=== PATIENT | male | born 1980 | race Caucasian/White ===

== ENCOUNTER 2023-04-23 15:57 | Outpatient (OUT) | payer OTHER, SELFPAY ==
[2023-04-23 16:43] LABS: Basophils Absolute Auto 0.1 10^3/uL (0.0-0.1); Basophils Percent Auto 0.9 % (0.2-2.0); Eosinophils Absolute Auto 0.3 10^3/uL (0.0-0.7); Eosinophils Percent Auto 3.4 % (0.9-7.0); Hematocrit 42.1 % (42.0-54.0); Hemoglobin 14.3 g/dL (14.0-18.0); Immature Granulocytes Abs Auto 0.11 10^3/uL (0.00-0.03); Immature Granulocytes Pct Auto 1.2 % (0.0-0.5); Lymphocytes Absolute Auto 2.7 10^3/uL (1.2-3.8); Lymphocytes Percent Auto 29.9 % (20.5-60.0); Mean Corpuscular Hemoglobin 30.5 pg (25.9-34.0); Mean Corpuscular Volume 89.8 fL (80.0-94.0); Mean Platelet Volume 10.1 fL (9.5-13.5); Monocytes Absolute Auto 0.5 10^3/uL (0.3-0.8); Monocytes Percent Auto 5.9 % (1.7-12.0); Neutrophils Absolute Auto 5.4 10^3/uL (1.4-6.5); Neutrophils Percent Auto 58.7 % (43.0-75.0); Platelet Count 273 10^3/uL (150-450); Red Blood Count 4.69 10^6/uL (4.70-6.10); Red Cell Distribution Width 12.6 % (11.0-15.0); White Blood Count 9.2 10^3/uL (4.0-11.0)
[2023-04-23 16:54] LABS: Alanine Aminotransferase 137 U/L (16-63); Albumin Level 4.1 g/dL (3.4-5.0); Alkaline Phosphatase 73 U/L (46-116); Anion Gap 16.4; Aspartate Amino Transferase 41 U/L (15-37); BUN Creatinine Ratio 16.5; Bilirubin Total 0.2 mg/dL (0.2-1.0); Calcium 9.1 mg/dL (8.5-10.1); Chloride 102 mmol/L (98-107); Estimated GFR (African America >60 (>=60); Estimated GFR (Non-African Ame >60 (>=60); Glucose 96 mg/dL (74-106); Potassium 4.4 mmol/L (3.5-5.1); Sodium 141 mmol/L (136-145); Total Protein 8.1 g/dL (6.4-8.2)
== END 2023-04-23 15:58 | disposition home or self-care (01) ==
LOC: LAB 16:04
PROVIDERS: PCP Family Medicine; Visit Provider Family Medicine
DX: R74.8 Abnormal levels of other serum enzymes (principal)
CPT/HCPCS: 36415; 80053; 85025

== ENCOUNTER 2023-05-02 09:51 | Outpatient (OUT) | payer OTHER, SELFPAY ==
[2023-05-02 11:20] LABS: Alanine Aminotransferase 135 U/L (16-63); Alkaline Phosphatase 63 U/L (46-116); Aspartate Amino Transferase 46 U/L (15-37); Bilirubin Direct 0.1 mg/dL (0.0-0.2); Bilirubin Total 0.5 mg/dL (0.2-1.0); Globulin 4.1 g/dL; Total Protein 8.1 g/dL (6.4-8.2)
[2023-05-03 05:21] LABS: HBsAg Screen Negative (Negative); HCV Ab Non Reactive (Non Reactive); Hep A Ab, IgM Negative (Negative); Hep B Core Ab, IgM Negative (Negative)
== END 2023-05-02 09:52 | disposition home or self-care (01) ==
LOC: LAB 09:52
PROVIDERS: PCP Family Medicine; Visit Provider Family Medicine
DX: R79.89 Other specified abnormal findings of blood chemistry (principal)
CPT/HCPCS: 36415; 80074; 80076

== ENCOUNTER 2025-06-27 09:00 | Outpatient (OUT) | payer OTHER, SELFPAY ==
--- OUTSIDE RECORDS SUMMARY | 2025-06-17 12:15 | XMS_ITS ---
Author Organization [facility] in [place] Address [address] [place] [address] Care Team Providers Care Color Straining Bag Washer Name Role Phone Lorne Morillo Primary Care Provider [phone] Allergies Allergen (clinical drug ingredient) Drug/Non Drug Allergy documented on EMR Reaction Allergy Type Onset Date Status RocephinUnknownDrug AllergyActiveerythromycinErythromycinUnknownDrug Allergy Active REASON FOR VISIT yearly wellness exam, bumps on left wrist, states they have been there around 9 months Medications Medication SIG (Take, Route, Frequency, Duration) Notes Start Date End Date Status Hyoscyamine Sulfate 0.125 MG 1-2 tabs SL SL ever y 4 hrs PRN abd pain 4ActiveMetoprolol Tartrate 25 MGTAKE 1 TABLET BY MOUTH TWICE A DAY; Duration: 90ActivePantoprazole Sodium 40 MGTAKE 1 TABLET BY MOUTH EVERY DAY; Duration: 90Active Social History Tobacco Use: Social History Observation Description Date Details (start date - stop date) Never Smoker NA - NA Tobacco Use/Smoking Question Answer Notes Patient is a nonsmoker AUDIT-C (Standard) Question Answer Notes Did you have a drink containing alcohol in the p ast year? No Eusuaq6VduotyromxpnzaAdfvvggq Problems Problem Type SNOMED Code ICD Code Onset Dates Problem Status W/U Status Risk Notes Problem Well adult (010950252) Well adult (Z00.00 ) Activeconfirmed Vital Signs Weight 273 lbs 06/17/2025 Height 70 in 06/17/2025 Blood pressure systolic 132 mm Hg 06/17/20 25 Blood pressure diastolic 72 mm Hg 025 BMI 39.17 kg/m2 06/17/2025 Encounters Encounter Location Date Provider Diagnosis [facility] [address] [facility] [place] [address] 06/17/2025 Lorne Morillo Well adult Z00.0 0 Assessments Encounter Date Diagnosis (ICD Code) Assessment Notes Treatment Notes Treatment Clinical Notes Section Notes 06/17/2025 Well adult (ICD-10 - Z00.00) Plan Of Treatment Medication Medication Name Sig Start Date Stop Date Notes Losartan Potassium 100 MG TAKE 1 TABLET BY MOUTH EVERY DAY Pending Test Test Name Order Date HEMOGLOBIN A1C (GLYCO) 06/17/2025 INSULIN, TOTAL 06/17/2025 LIPID PANEL (CHOL/TRIG/HDL/LDL) 06/17/20 25 URIC ACID 06/17/2025 Urinalysis Microscopic 06/17/2025 CULTURE URINE 06/17/2025 THYROID PANEL (T4/TSH/FREE T3) PSA, SCREENING 06/17/2025 CMP (COMP MET MALIK) w/eGFR CKD-EPI 2024 CBC WITH DIFF 06/17/2025 Progress Notes * Darien MARTIN RDOB:[birth year] (44 yo M)Acc No.[id number]:06/17/2025 Progress Note Patient: Purvi PIERCEEKATERINA Darien Sol :?Clifton Morillo ([facility]), MDDOB:1980???Age: 44 Y???Sex:MaleDate:06/17/2025Phone:[phone]:[address] [place], [place]Nlnpy In:04:09 PM ESTCheck Out:04:34 PM EST Subjective: * Chief Complaints: * Y early wellness examBumps on left wrist, states they have been there around 9 months * HPI: ???General:?Left mwedail wrist iwht warts multiple HTN _ discussed - watchin salt and cafeine and stoping losartan. ???Depression Screening:?PHQ-2 (2015 Edition)?Little interest or pleasure in doing things? Not at all ?Feeling down, depressed, or hopeless??Not at all ?Total Score?0 * ROS: ???EENT:?hearing changes?denies.?visual changes?denies. non-healing mouth sores?denies.?swollen glands or neck lumps?denies.?hoarseness?denies.?sore throat?denies.?difficulty swallowing?denies.?nose bleeds?denies.?nasal congestion?denies.?ear ache?denies.?ear discharge denies.?ringing in ears?denies.?light sensitivity?denies.?eye pain?denies.?blurring?denies.?eye irritation?denies.?double vision?denies. vision loss?denies.?General/Constitutional:?Sweats:?Denies.?Fatigue?denies.?Sleep proble ms?denies.?Anorexia?denies.?Malaise?denies.?Weight loss?denies. Fatigue or Weakness?denies.?Fever or Chills?denies.?Cardiovascular:?Shortness of Breath w/lying flat?denies.?Lightheadedne ss/dizziness?denies.?Chest tightness/ heavy pressure?denies.?Swelling of legs, a nkles, or feet?denies.?Waking up with shortness of breath?denies.?Chest pain&#16 0;denies.?Palpitations?denies.?Weight gain?denies.?Respiratory:?Chronic or frequent cough?denies.?Coughing up blood&#1 60;denies.?Difficulty breathing?denies.?Productive cough?denies.?Snoring&#1 60;denies.?Shortness of breath that awakens from sleep (PND)?denies.?Chest pain? denies.?Sputum production?denies.?Wheezing?denies.?Musculoskeletal:?Joint pain?denies.?Joint Fluid?denies.?Backpain?denies.?Knee pain?denies.?Neck pain?denies.?Joint Stiffness?denies.?Muscle cramps?denies.?Weakness of muscles?denies.?Arthritis?denies.?Muscle aches?denies.?Pain in shoulder(s)?denies.?Swollen joints?denies.? * Active Problem List R55 Syncope and collapse Modified On:04/17/2023U Status:dutusjecxE49Vvnmulbdq hypertension Modified On:12/11/2022U Status:ltufruxiiE00.9Hiatal hernia Modified On:12/11/2022U Status:uocsrepboE22.90Diverticulosis Modified On:12/11/2022U Status:upgeaxhemR03.1Pulmonary nodule Modified On:12/11/2022U Status:okhykuwoqW02.0Fatty liver Modified On:12/11/2022U Status:jwwgqdwydP90.92Diverticulitis Modified On:12/11/2022U Status:evqbfkqlnC00.3Over weight Modified On:12/11/2022U Status:otvxtnujdO31.1COVID-19 Modified On:12/11/2022U Status:oixgiqkylZ47.2Paresthesia of arm Modified On:12/13/2022U Status:lqrvvauauE08Rriswjq Modified On:12/13/2022U Status:rybehaqjeR23.8Abnormal levels of other serum enzymes Modified On:04/18/2023U Status:wajwytzvnN75.11Right upper quadrant abdominal pain Modified On:05/19/2024/U Status:arhyhdgvoH63.00Well adult Modified On:06/17/2025U Status:confirmed * Medical History: * Surgical History: c yst removal back 11/25/2022 * Hospitalization/Major Diagno stic Procedure: s yncope 08/29/2022 * Family History: F ather: unknown. M other: alive 62 yrs. S ister(s): alive. 3 sister(s) - healthy. 1 son(s) , 1 daughter(s) - healthy. . * Social History: ???Tobacco Use:?Tobacco Use/Smoking?Patient is a?nonsmoker ???Drug/Alcohol:?AUDIT-C (Standard)?Did you have a drink containing alcohol in the past year??No ?Points?0 ?Interpretation?Negative * Medications: T akingHyoscyamine Sulfate 0.125 MG Tablet 1-2 tabs SL SL every 4 hrs PRN abd pain Losartan Potassium 100 MG Tablet TAKE 1 TABLET BY MOUTH EVERY DAY Metoprolol Tartrate 25 MG Tablet TAKE 1 TABLET BY MOUTH TWICE A DAY Pantoprazole Sodium 40 MG Tablet Delayed Release TAKE 1 TABLET BY MOUTH EVERY DAY Medication List reviewed and reconciled with the patientTaking Hyoscyamine Sulfate 0.125 MG Tablet 1-2 tabs SL SL every 4 hrs PRN abd pain Taking Losartan Potassium 100 MG Tablet TAKE 1 TABLET BY MOUTH EVERY DAY Taking Metoprolol Tartrate 25 MG Tablet TAKE 1 TABLET BY MOUTH TWICE A DAY Taking Pantoprazole Sodium 40 MG Tablet Delayed Release TAKE 1 TABLET BY MOUTH EVERY DAY Medication List reviewed and reconciled with the patient * Allergies: E rythromycin - Criticality HighRocephin - Criticality Highno[Allergies Verified] Objective: * Vitals: W t:273lbs, Ht: 70 in, BP:132/72mm Hg, BMI:39.17Index, Ht-cm: 177.8 cm, Wt-k.83 kg. * Examination: ???Physical Exam: ?GENERAL:?well developed, well nourished, in no acute distress.?HEAD:?normocephalic/atraumatic.?EYES:?pupils equal, round and reactive to light, conjunctivae and sclerae normal.?EARS:?no deformity or lesion of external ear, canals and TM appear normal bilaterally, TM's intact, not inflamed with normal light reflex, hearing grossly normal to conversational speech.?NOSE:?no deformity, discharge, inflammation, or lesions. ?MOUTH:?mucous membranes moist, normal oropharynx and posterior pharynx without lesions or exudates, tongue normal, dentition normal.?NECK:?neck supple, no masses or palpable cervical nodes, trachea midline, thyroid without nodules, masses, tenderness, or enlargement.?CHEST:?no chest wall deformity, no chest wall tenderness. ?LUNGS:?normal respiratory effort and clear to auscultation, no wheezes, rales, or rhonchi, good air exchange.?CARDIO:?regular rate and rhythm, normal S1 and S2, nor murmur, rub, or gallop.?PULSES:?normal capillary refill.?ABDOMEN:?soft, non-distended, non-tender, no masses.?MUSCULOSKELETAL:?no deformity or scoliosis noted, normal range of motion, joints normal, no erythema, edema, effusion, or ecchymosis.?EXTREMITY:?no clubbing, cyanosis, edema, or deformity withnormal ROM in both upper and lower bilateral extremities.?NEUROLOGIC:?grossly normal.?SKIN:?no rashes, ulcerations, or suspicious lesions.?LYMPH NODES:?no cervical adenopathy, nodes normal.?MENTAL STATUS:?alert and oriented x3, normal mood and affect.? Assessment: * Assessment: 1.?Well adult - Z00.00 (Primary)??? Plan: * Treatment: Stop Losartan Potassium Tablet, 100 MG, TAKE 1 TABLET BY MOUTH EVERY DAY.?LAB: HEMOGLOBIN A1C (GLYCO) ?LAB: INSULIN, TOTAL ?LAB: LIPID PANEL (CHOL/TRIG/HDL/LDL) ?LAB: URIC ACID ?LAB: Urinalysis Microscopic ?LAB: CULTURE URINE ?LAB: THYROID PANEL (T4/TSH/FREE T3) ?LAB: PSA, SCREENING ?LAB: CMP (COMP MET MALIK) w/eGFR CKD-EPI ?LAB: CBC WITH DIFF * Procedure Codes: * Preventive Medicine: ??Screenings/Counseling:?BMI ACTION PLAN?Above Normal BMI Follow-up?Dietary management education, guidance, and counseling * * Sign off status: CompletedVisit Status:?CHK (Check Out) true * Provider: Ra Morillo ([facility])MD Date: 1 Generated for Printing/FaDiamond Kineticsg/eTransmitting on:?06/27/2025 09:04 AM EDT History and Physical Notes * HPI (History of Present Illness) CategorySub-CategoryDetailNotesCategory NotesGeneral Left mwedail wrist iwht warts multiple HTN _ discussed - watchin salt and cafeine and stoping losartan Depression ScreeningPHQ-2 (2015 Edition)Little interest or pleasure in doing things?: Not at allFeeling down, depressed, or hopeless?: Not at allTotal Score: 0 Examination CategorySub-CategoryDetailNotesCategory NotesPhysical ExamGENERAL:well developed, well nourished, in no acute distressHEAD:normocephalic/atraumatic EYES:pupils equal, round and reactive to light, conjunctivae and sclerae normal EARS:no deformity or lesion of external ear, canals and TM appear normal bilaterally, TM's intact, not inflamed with normal light reflex, hearing grossly normal to conversational speechNOSE:no deformity, discharge, inflammation, or lesionsMOUTH:mucous membranes moist, normal oropharynx and posterior pharynx without lesions or exudates, tonguenormal, dentition normalNECK:neck supple, no masses or palpable cervical nodes, trachea midline, thyroid without nodules, masses, tenderness, or enlargementCHEST:no chest wall deformity, no chest wall tendernessLUNGS:normal respiratory effort and clear to auscultation, no wheezes, rales, or rhonchi, good air exchangeCARDIO:regular rate and rhythm, normal S1 and S2, nor murmur, rub, or gallopPULSES:normal capillary refillABDOMEN:soft, non-distended, non-tender, no massesRECTAL:MUSCULOSKELETAL:no deformity or scoliosis noted, normal range of motion, joints normal, no erythema, edema, effusion, or ecchymosisEXTREMITY:no clubbing, cyanosis, edema, or deformity with normal ROM in both upper and lower bilateral extremitiesNEUROLOGIC:grossly normalSKIN:no rashes, ulcerations, or suspicious lesionsLYMPH NODES:no cervical adenopathy, nodes normalMENTAL STATUS:alert and oriented x3, normal mood and affect
--- OUTSIDE RECORDS SUMMARY | 2025-06-27 09:05 | XMS_ITS | Patient Health Record ---
Author Organization [facility] in [place] Address [address] [place] [address] Care Team Providers Care Hot Mill Tin Roller Name Role Phone Lorne Morillo Primary Care Provider Allergies Allergen (clinical drug ingredient) Drug/Non Drug Allergy documented on EMR Reaction Allergy Type Onset Date Status RocephinUnknownDrug AllergyActiveerythromycinErythromycinUnknownDrug Allergy Active Reason For Referral No Information Medications Medication SIG (Take, Route, Frequency, Duration) [...] Question Answer Notes Patient is a nonsmoker Alcohol Screen (Audit-C) Question Answer Notes Did you have a drink containing alcohol in the p ast year? Yes How often did you have 6 or more drinks on one occasion in the past year?Monthly or less (1 point)How many drinks did you have on a typical day when you were drinking in the past year?3 or 4 drinks (1 point)How often did you have a drink containing alcohol in the past year?Less than monthly (1 point)Points3 InterpretationNegativeAUDIT-C (Standard) Question Answer Notes Did you have a drink containing alcohol in the p ast year? No Tkonui9VvjatzeklxjgkvNsegmpzl Problems Problem Type SNOMED Code ICD Code Onset Dates Problem Status W/U Status Risk Notes Problem Syncope and collapse (712316403) Syncope and collapse (R55) ActiveconfirmedProblemLaboratory test result abnormal (769380440)Abnormal levels of other serum enzymes (R74.8)ActiveconfirmedProblemEssential hypertension (98427388)Essential hypertension (I10)ActiveconfirmedProblemVertigo (456464681) Vertigo (R42)ActiveconfirmedProblemHiatal hernia (69141602)Hiatal hernia (K44.9) ActiveconfirmedProblemDiverticular disease of colon (528260183)Diverticulosis (K57.90)ActiveconfirmedProblemPulmonary nodule (585466942)Pulmonary nodule (R91.1)ActiveconfirmedProblemFatty liver (067876575)Fatty liver (K76.0)Active confirmedProblemWell adult (004980222)Well adult (Z00.00)ActiveconfirmedProblem Diverticulitis (45090990)Diverticulitis (K57.92)ActiveconfirmedProblemRight upper quadrant pain (263267145)Right upper quadrant abdominal pain (R10.11) ActiveconfirmedProblemOverweight (898063015)Over weight (E66.3)Activeconfirmed ProblemParesthesia of arm (36014457)Paresthesia of arm (R20.2)Activeconfirmed ProblemCOVID-19 (148657629)COVID-19 (U07.1)Activeconfirmed Vital Signs Blood pressure diastolic 72 mm Hg 06/17/2025 Wjkjmx54 in06/17/2025lood pressure asvqocwo572 mm Hg06/17/20253293Qjxnls712 lbs 06/17/2025BMI39.17 kg/m206/17/2025 Encounters Encounter Location Date Provider Diagnosis [facility] [address] [place] [address] 06/04/2025 Lorne Morillo [facility] [place] [address] 06/17/2025Lorne Leyva adult Z00.00 Assessments Encounter Date Diagnosis (ICD Code) Assessment Notes Treatment Notes Treatment Clinical Notes Section Notes 06/17/2025 Well adult (ICD-10 - Z00.00) Plan Of Treatment Pending Test Test Name Order Date GLUCOSE - IN OFFICE 04/17/2023 CMP (COMPLETE METABOLIC PANEL) HEMOGLOBIN A1C (GLYCO) 04/17/2023 HEMOGLOBIN A1C (GLYCO) 06/17/2025 INSULIN, TOTAL 06/17/2025 INSULIN, TOTAL 04/17/2023 LIPID PANEL (CHOL/TRIG/HDL/LDL) 04/17/20 LIPID PANEL (CHOL/TRIG/HDL/LDL) 06/17/20 CBC WITH DIFF 04/17/2023 URIC ACID 06/17/2025 EKG w Interp & Report - performed 2022 Urinalysis Microscopic 06/17/2025 CMP - Comprehensive Metabolic Panel 03/28 CBC W/AUTO DIFF 04/18/2023 CULTURE URINE 06/17/2025 HEPATITIS PANEL, ACUTE 04/24/2023 LIVER PROFILE 04/24/2023 US ABD 05/19/2024 XR CSPINE MIN 4 VIEWS 12/13/2022 THYROID PANEL (T4/TSH/FREE T3) THYROID PANEL (T4/TSH/FREE T3) PSA, SCREENING 06/17/2025 CMP (COMP MET MALIK) w/eGFR CKD-EPI 2024 CBC WITH DIFF 06/17/2025 Insurance Providers Payer Name Payer Address Payer Phone Subscriber Number Group Number Insured Name Patient Relationship to Insured Coverage Start Date Coverage End Date [employer] [address] [place] [address] [id number] Darien French Self - patient is the insured Medical (General) History Medical History History ICD Code Syncope and collapse R55 Over weight E66.3 Pulmonary nodule R91.1 Diverticulosis K57.90 Hiatal hernia K44.9 Fatty liver K76.0 Essential hypertension I10 COVID-19 U07.1 Diverticulitis K57.92 Surgical History Surgery Date(Month/Year) cyst removal back 11/25/2022 Hospitalization History Reason Date(Month/Year) syncope 08/29/2022
--- OUTSIDE RECORDS SUMMARY | 2025-06-27 09:05 | XMS_ITS | Clinical Summary ---
Author Organization [facility] Address [address] [place] [address] Care Team Providers Care Senior Project Leader/Team Lead Name Role Phone Unavailable Primary Care Provider Unavailabl e Social History Tobacco UseTypesPacks/DayYears UsedDateSmoking Tobacco: Never AssessedSex and Gender InformationValueDate RecordedSex Assigned at BirthNot on fileLegal Sex Male11/08/2022 8:33 PM EDTGender IdentityNot on fileSexual OrientationNot on file Last Filed Vital Signs Vital SignReadingTime TakenCommentsBlood Eiigxull036/76010/10/2018 12:00 PM EST Pulse--Temperature--Respiratory Rate--Oxygen Saturation--Inhaled Oxygen Concentration--Xfzmnf915 kg (240 lb)10/10/2018 12:00 PM QMDJsxydz321.8 cm (5' 10 )10/10/2018 12:00 PM ESTBody Mass Index34.44010/10/2018 12:00 PM EST Plan of Treatment Not on file
--- OUTSIDE RECORDS SUMMARY | 2025-06-27 09:05 | XMS_ITS | Clinical Summary ---
Author Organization [facility] Address [address], [address] [place] [address] Care Team Providers Care Sheep Herder Name Role Phone Clifton Morillo MD Primary Care Provider [phone] Allergies Active AllergyReactionsCriticalityNoted DateCommentsCeftriaxoneOther (See Comments)08/30/2022 Medications MedicationSigDispense QuantityRefillsLast FilledStart DateEnd DateStatus metoprolol tartrate (LOPRESSOR) 25 MG tablet Take 25 mg by mouth 2 times dailyActive PANTOPRAZOLE SODIUM PO Take 40 mg by mouth dailyActive losartan (COZAAR) 50 MG tablet Take 1 tablet by mouth daily 30 tablet ctive Additional Information Patient taking differently: 100 mgOral DAILY,Take 100 mg once daily, Reported on 10/09/2022 cetirizine (ZYRTEC) 10 MG tablet Take 10 mg by mouth dailyActive Active Problems ProblemNoted DateDiagnosed DateSyncope and mtlfoncb46/04/2023hest pain in adult 08/30/20225252Zytonjqjborr74/04/2023 Social History Tobacco UseTypesPacks/DayYears UsedDateSmoking Tobacco: NeverSmokeless Tobacco: Never Tobacco Cessation:Counseling Given: No Alcohol UseStandard Drinks/WeekCommentsYes0 (1 standard drink = 0.6 oz pure alcohol)SociallySex and Gender InformationValueDate RecordedSex Assigned at BirthNot on fileLegal KwmYgqk2808/30/2022 10:05 AM ESTGender IdentityNot on file Sexual OrientationNot on file Last Filed Vital Signs Vital SignReadingTime TakenCommentsBlood Dapxsycw475/7802 3:34 PM EST Saglt9155 3:34 PM PYZZljbpxodntk01.9 ??C (98.4 ??F)08/30/2022 10:08 AM ESTRespiratory Wkoh250410/09/2022 3:34 PM ESTOxygen Wazfggurqm39%10/09/2022 3:34 PM ESTInhaled Oxygen Concentration--Dmclfn566.6 kg (268 lb 1.6 oz)10/09/2022 3:34 PM VMXZufemg292.8 cm (5' 10 )10/09/2022 3:34 PM ESTBody Mass Index38.47 10/09/2022 3:34 PM EST Plan of Treatment Health MaintenanceDue DateLast DoneCommentsDepression Mctfbv7411/21/1994Varicella vaccine (1 of 2 - 13+ 2-dose series)11/22/1995HIV uctfuo1411/21/1997Hepatitis C hcruxg4011/21/2000DTaP/Tdap/Td vaccine (1 - Tdap)2001Hepatitis B vaccine (1 of 3 - 19+ 3-dose series)11/21/20013771Sgpatx92/28/2023Flu vaccine (#1)03/27/2025 07/10/2019, 06/17/2018COVID-19 Vaccine (2 - 2024- season) HPV vaccine (No Doses Required)CompletedHepatitis A vaccineAged OutNo longer eligible based on patient's age to complete this topicHib vaccineAged OutNo longer eligible based on patient's age to complete this topicMeningococcal (ACWY) vaccineAged OutNo longer eligible based on patient's age to complete this topicMeningococcal B vaccineAged OutNo longer eligible based on patient's age to complete this topicPneumococcal 0-49 years VaccineAged OutNo longer eligible based on patient's age to complete this topicPolio vaccineAged OutNo longer eligible based on patient's age to complete this topic Insurance * Guarantor: Yadi French TypeRelation to PatientDate of BirthPhone Billing AddressPersonal/QpelgoWnuq60/28/1981 [address] [address] * Guarantor: Darien FrenchAccount TypeRelation to PatientDate of BirthPhone Billing AddressWorkers OeyfPiab25/28/1981 [address] [address] Advance Directives * Full Code (Latest Code Status on File) Date ActivatedDate InactivatedComments08/31/2022 3:38 AM08/31/2022 8:08 PM NameRelationshipHealthcare Agent RelationshipCommunicationKaren [facility] Primary Decision Maker* Care Teams Team MemberRelationshipSpecialtyStart DateEnd Date Clifton Morillo MD [address] [place] [address] PCP - GeneralFamily Medicine08/30/22
[2025-06-27 09:25] LABS: Glucose Urine UA NEGATIVE (NEGATIVE)
[2025-06-27 09:28] LABS: Hematocrit 44.4 % (42.0-54.0); Hemoglobin 14.9 g/dL (14.0-18.0); Immature Granulocytes Abs Auto 0.03 10^3/uL (0.00-0.03); Immature Granulocytes Pct Auto 0.4 % (0.0-0.5); Lymphocytes Absolute Auto 2.0 10^3/uL (1.2-3.8); Mean Corpuscular HGB Conc 33.6 g/dL (29.9-35.2); Mean Corpuscular Hemoglobin 30.5 pg (25.9-34.0); Mean Corpuscular Volume 91.0 fL (80.0-94.0); Platelet Count 234 10^3/uL (150-450); Red Blood Count 4.88 10^6/uL (4.70-6.10); White Blood Count 7.1 10^3/uL (4.0-11.0)
[2025-06-27 09:41] LABS: Cast Seen? NONE SEEN #/LPF (NONE SEEN); Crystals Seen? None Seen #/HPF (None Seen)
[2025-06-27 10:23] LABS: Anion Gap 11.9; Blood Urea Nitrogen 15.0 mg/dL (7.0-18.0); Calcium 9.0 mg/dL (8.5-10.1); Carbon Dioxide 28.4 mmol/L (21.0-32.0); Chloride 105 mmol/L (98-107); Estimated GFR (African America >60 (>=60 mL/min/1.73m^2); Estimated GFR (Non-African Ame >60 (>=60 mL/min/1.73m^2); Glucose 112 mg/dL (74-106); Potassium 4.3 mmol/L (3.5-5.1); Sodium 141 mmol/L (136-145); Uric Acid 7.3 mg/dL (3.5-7.2)
[2025-06-27 10:24] LABS: Alanine Aminotransferase 58 U/L (16-63); Albumin Globulin Ratio 1.0; Albumin Level 3.8 g/dL (3.4-5.0); Alkaline Phosphatase 61 U/L (46-116); Aspartate Amino Transferase 22 U/L (15-37); Cholesterol 181 mg/dL (<=200); Free T3 2.78 pg/mL (2.18-3.98); Globulin 3.7 g/dL; HDL Cholesterol 42 mg/dL (40-60); Thyroid Stimulating Hormone 3.199 uIU/mL (0.358-3.740); Total Protein 7.5 g/dL (6.4-8.2); Triglycerides 78 mg/dL (<=150); VLDL CHOLESTEROL 15.6 mg/dL
== END 2025-06-27 09:01 | disposition home or self-care (01) ==
LOC: LAB 09:01
PROVIDERS: PCP Family Medicine; Visit Provider Family Medicine
DX: Z00.00 Encounter for general adult medical examination without abnormal findings (principal); Z12.5 Encounter for screening for malignant neoplasm of prostate
CPT/HCPCS: 36415; 80053; 80061; 81001; 83036; 83525; 84436; 84443; 84481; 84550; 85025; 87086; G0103